=== PATIENT | male | born 1950 ===

== ENCOUNTER 2018-03-25 14:34 | Emergency (ER) | payer MEDICARE ==
[2018-03-25 14:42] VITALS: RESP 18
--- NOTE | 2018-03-25 15:08 | C.PDOC ---
History Of Present Illness 67 y/o kar presents to the ED complaining of a buzzing noise inside his head, ongoing for months. Patient denies any noise in the ears, states it feels like the noise is inside his head. Patient has not seen PMD or any doctor regarding this complaint. Today he notes symptoms seemed worse, prompting him to come in. Denies any headache, dizziness, visual changes, changes in speech, extremity weakness, chest pain, or SOB. Time Seen by Provider: 03/25/18 15:01 Chief Complaint (Nursing): Headache History Per: Patient History/Exam Limitations: no limitations Onset/Duration Of Symptoms: Days Current Symptoms Are (Timing): Still Present Past Medical History Reviewed: Historical Data, Nursing Documentation, Vital Signs Vital Signs: Last Vital Signs Temp 98.8 F 03/25/18 17:33 Pulse 84 03/25/18 17:33 Resp 18 03/25/18 17:33 BP 170/91 H 03/25/18 17:33 Pulse Ox 97 03/25/18 18:08 - Medical History PMH: HTN Surgical History: No Surg Hx Family History: States: No Known Family Hx - Social History Hx Tobacco Use: Yes Hx Alcohol Use: Yes Hx Substance Use: No - Immunization History Hx Tetanus Toxoid Vaccination: Yes Hx Influenza Vaccination: Yes Hx Pneumococcal Vaccination: No Review Of Systems Except As Marked, All Systems Reviewed And Found Negative. Eyes: Negative for: Vision Change ENT: Negative for: Ear Pain Cardiovascular: Negative for: Chest Pain Respiratory: Negative for: Shortness of Breath Neurological: Positive for: Other (buzzing noise inside head). Negative for: Weakness, Numbness, Incoordination, Change in Speech, Confusion, Headache, Dizziness Physical Exam - Physical Exam Appears: Non-toxic, No Acute Distress Skin: Normal Color, Warm, Dry Head: Atraumatic, Normacephalic Eye(s): bilateral: Normal Inspection, PERRL, EOMI Nose: Normal Oral Mucosa: Moist Neck: Normal ROM, Supple Cardiovascular: Rhythm Regular, No Murmur Respiratory: Normal Breath Sounds, No Rales, No Rhonchi, No Wheezing Gastrointestinal/Abdominal: Soft, No Tenderness, No Distention Extremity: Bilateral: Atraumatic, Normal Color And Temperature, Normal ROM Neurological/Psych: Oriented x3, Normal Speech, Normal Cranial Nerves, Normal Motor, Normal Sensation, Other (No focal deficits) Gait: Steady ED Course And Treatment - Laboratory Results Result Diagrams: 03/25/18 15:40 03/25/18 15:40 O2 Sat by Pulse Oximetry: 97 (RA) Pulse Ox Interpretation: Normal - Other Rad CXR X-Ray: Read By Radiologist Interpretation: Accession No. : [id number]. Patient Name / ID : GISSELLE EMMANUEL / [id number]. Exam Date : 03/25/2018 15:09:37 ( Approved ). Study Comment : Sex / Age : M / 67Y. Creator : Enmanuel Bagley MD. Dictator : Enmanuel Bagley MD. Sexual Assault Nurse : Subpoena Server : Enmanuel Bagley MD. Approver2 : Report Date : 03/25/2018 15:41:38. My Comment : . Chest x- ray two views. History: Elevated blood pressure. Comparison: None available. Findings: Biapical pleural thickening with upper lobe granulomatous changes. Diffuse increased interstitial lung markings. Right hilar prominence. Tortuous aorta. Top normal heart size. Degenerative changes in the spine with paravertebral osteophytes. Impression: Biapical pleural thickening with upper lobe granulomatous changes. Diffuse increased interstitial lung markings. Right hilar prominence. Tortuous aorta. Top normal heart size. - CT Scan/US CT Head Other Rad Studies (CT/US): Read By Radiologist, Radiology Report Reviewed CT/US Interpretation: Accession No. : [id number]. Patient Name / ID : GISSELLE EMMANUEL / [id number]. Exam Date : 03/25/2018 15:47:41 ( Approved ). Study Comment : Sex / Age : M / 67Y. Creator : Enmanuel Bagley MD. Dictator : Enmanuel Bagley MD. Sexual Assault Nurse : Subpoena Server : Enmanuel Bagley MD. Approver2 : Report Date : 03/25/2018 16:23:33. My Comment : . PROCEDURE: CT HEAD WITHOUT CONTRAST. HISTORY: buzzing nose in the head. COMPARISON: None available. TECHNIQUE: Axial computed tomography images were obtained through the head/brain without intravenous contrast. Radiation dose: Total exam DLP = 891 mGy-cm. This CT exam was performed using one or more of the following dose reduction techniques: Automated exposure control, adjustment of the mA and/or kV according to patient size, and/or use of iterative reconstruction technique. FINDINGS: HEMORRHAGE: No intracranial hemorrhage. BRAIN: No mass effect or edema. Scattered focal lucencies in the subcortical and periventricular white matter suggestive for chronic microvascular ischemic change. Punctate bilateral basal ganglia calcifications. VENTRICLES: Unremarkable. No hydrocephalus. CALVARIUM: Unremarkable. PARANASAL SINUSES: Unremarkable as visualized. No significant inflammatory changes. MASTOID AIR CELLS: Unremarkable as visualized. No inflammatory changes. OTHER FINDINGS: None. IMPRESSION: No acute intracranial abnormality. Chronic microvascular ischemic changes. If symptoms persists, consider further evaluation with MRI. Progress Note: Patient found to by hypertensive. Given 100 mg Labetalol PO. Labs , CT Head, EKG, and CXR ordered. Disposition - Disposition Referrals: Henry Lomas MD [Staff Provider] - Adrien Crews MD [Staff Provider] - Preeti Gold MD [Staff Provider] - Sumit Llanos MD [Staff Provider] - Ajay Shaikh MD [Staff Provider] - Disposition: HOME/ ROUTINE Disposition Time: 17:58 Condition: STABLE Additional Instructions: Follow up with PMD and ENT specialist within 1-2 days. REturn to ED if feel worse. Prescriptions: Valsartan/Hydrochlorothiazide [Diovan Hct 160-12.5 mg Tab] 1 each PO DAILY #30 tablet Instructions: Tinnitus (Ringing in the Ears), High Blood Pressure in Adults Forms: P21 (Frisian) Print Language: LUXEMBOURGISH - Clinical Impression Clinical Impression: Tinnitus, Hypertension, uncontrolled - PA / BIKE TECHNICIAN / Resident Statement MD/DO has reviewed & agrees with the documentation as recorded. - Scribe Statement The provider has reviewed the documentation as recorded by the Scribe (Kim Kearney) All medical record entries made by the Scribe were at my direction and personally dictated by me. I have reviewed the chart and agree that the record accurately reflects my personal performance of the history, physical exam, medical decision making, and the department course for this patient. I have also personally directed, reviewed, and agree with the discharge instructions and disposition.
--- NOTE | 2018-03-25 15:43 | RAD ---
Chest x-ray two views History: Elevated blood pressure. Comparison: None available. Findings: Biapical pleural thickening with upper lobe granulomatous changes. Diffuse increased interstitial lung markings. Right hilar prominence. Tortuous aorta. Top normal heart size. Degenerative changes in the spine with paravertebral osteophytes. Impression: Biapical pleural thickening with upper lobe granulomatous changes. Diffuse increased interstitial lung markings. Right hilar prominence. Tortuous aorta. Top normal heart size.
[2018-03-25 15:49] LABS: BASO # 0.1 K/uL (0.0-0.2); BASO % 0.9 % (0.0-2.0); EOS # 0.1 K/uL (0.0-0.7); EOS % 0.9 % (0.0-4.0); HEMOGLOBIN 16.4 g/dL (12.0-18.0); LYMPH # 1.6 K/uL (1.0-4.3); MEAN CORPUSCULAR HEMOGLOBIN 32.2 pg (27.0-31.0); MEAN PLATELET VOLUME 8.4 fL (7.2-11.7); MONO # 0.5 K/uL (0.0-0.8); MONO % 5.4 % (0.0-10.0); NEUT # 7.2 K/uL (1.8-7.0); NEUT % 75.8 % (50.0-75.0); RBC 5.11 Mil/uL (4.40-5.90); RED CELL DISTRIBUTION WIDTH 13.7 % (11.5-14.5); WHITE BLOOD COUNT 9.5 K/uL (4.8-10.8)
[2018-03-25 16:01] LABS: ALB/GLOB RATIO 1.2 (1.0-2.1); ALBUMIN 4.3 g/dL (3.5-5.0); ALT/SGPT 21 U/L (21-72); AST/SGOT 30 U/L (17-59); BLOOD UREA NITROGEN 11 mg/dL (9-20); GFR AFRICAN-AMERICAN > 60; GFR NON-AFRICAN AMERICAN > 60
--- NOTE | 2018-03-25 16:25 | CT ---
PROCEDURE: CT HEAD WITHOUT CONTRAST. HISTORY: buzzing nose in the head COMPARISON: None available. TECHNIQUE: Axial computed tomography images were obtained through the head/brain without intravenous contrast. Radiation dose: Total exam DLP = 891 mGy-cm. This CT exam was performed using one or more of the following dose reduction techniques: Automated exposure control, adjustment of the mA and/or kV according to patient size, and/or use of iterative reconstruction technique. FINDINGS: HEMORRHAGE: No intracranial hemorrhage. BRAIN: No mass effect or edema. Scattered focal lucencies in the subcortical and periventricular white matter suggestive for chronic microvascular ischemic change. Punctate bilateral basal ganglia calcifications. VENTRICLES: Unremarkable. No hydrocephalus. CALVARIUM: Unremarkable. PARANASAL SINUSES: Unremarkable as visualized. No significant inflammatory changes. MASTOID AIR CELLS: Unremarkable as visualized. No inflammatory changes. OTHER FINDINGS: None. IMPRESSION: No acute intracranial abnormality. Chronic microvascular ischemic changes. If symptoms persists, consider further evaluation with MRI.
[2018-03-25 17:33] VITALS: BP 170/91; PULSE 84; TEMP 98.8
[2018-03-25 18:06] VITALS: O2SAT 97
--- NOTE | 2018-03-28 13:41 | CARD ---
APPROVED REPORT EKG Measurement Heart [id number] <Conclusion> Normal sinus rhythm Left anterior fascicular block Minimal voltage criteria for LVH, may be normal variant Abnormal ECG
== END 2018-03-25 18:32 | disposition home or self-care (01) ==
LOC: C.ER 14:34
DX: I10 Essential (primary) hypertension (principal); H93.19 Tinnitus, unspecified ear; Z72.0 Tobacco use